=== PATIENT | female | born 1985 ===

== ENCOUNTER → 2024-05-17 13:39 | Outpatient (REF) | payer OTHER, SELFPAY | LOC: CLINIC 13:39 | PROVIDERS: OTHER PHYSICIAN Obstetrics & Gynecology Gynecology | DX: Z20.2 Contact with and (suspected) exposure to infections with a predominantly sexual mode of transmission (principal) | CPT/HCPCS: 87491; 87591 ==

== ENCOUNTER → 2024-06-05 14:23 | Outpatient (REF) | payer OTHER, SELFPAY | LOC: CLINIC 14:23 | PROVIDERS: ATTENDING PHYSICIAN Obstetrics & Gynecology Gynecology; FAMILY PHYSICIAN Nurse Practitioner Adult Health | DX: N93.9 Abnormal uterine and vaginal bleeding, unspecified (principal) | CPT/HCPCS: 76830; 76856 ==

== ENCOUNTER → 2024-10-04 15:22 | Outpatient (REF) | payer OTHER, SELFPAY | LOC: CLINIC 15:22 | PROVIDERS: ATTENDING PHYSICIAN Obstetrics & Gynecology Gynecology | DX: N92.6 Irregular menstruation, unspecified (principal); N84.0 Polyp of corpus uteri | CPT/HCPCS: 88305 ==

== ENCOUNTER → 2024-11-08 09:40 | Outpatient (REF) | payer OTHER, SELFPAY | LOC: CLINIC 09:40 | PROVIDERS: ATTENDING PHYSICIAN Obstetrics & Gynecology Gynecology | DX: N92.6 Irregular menstruation, unspecified (principal); N84.0 Polyp of corpus uteri | CPT/HCPCS: 76830; 76856 ==